=== PATIENT | female | born 1985 | race Caucasian/White ===

== ENCOUNTER 2021-07-13 10:21 | Emergency (ER) | payer SELFPAY ==
[2021-07-13 10:58] LABS: #Eosinphils 0.2 10x3/uL (0.0-0.5); #Monocytes 0.5 10x3/uL (0.0-1.1); #Neutrophils 6.1 10x3/uL (1.5-8.4); %Basophils 0.4 % (0.0-2.0); %Eosinophils 2.1 % (0.0-6.0); %Lymphocytes 20.8 % (18.0-47.0); %Monocytes 5.5 % (0.0-10.0); %Neutrophils 70.8 % (40.0-75.0); Hemoglobin 11.7 g/dL (12.0-15.5); Mean Corpuscular HGB CONC 31.5 g/dL (32.0-36.0); Mean Corpuscular Hemoglobin 24.6 pg (27.0-33.0); Mean Corpuscular Volume 77.9 fl (81.6-98.3); Mean Platelet Volume 8.8 fl (7.4-10.4); Platelet Count 374 10x3/uL (150-450); RBC Distribution Width 14.7 % (11.5-14.5); Red Blood Cell (RBC) Count 4.76 10x6/uL (3.90-5.03); White Blood Cell (WBC) Count 8.5 10x3/uL (3.5-10.5)
[2021-07-13 11:01] LABS: ALT (SGPT) 11 U/L (8-55); AST (SGOT) 15 U/L (5-34); Albumin 4.7 g/dL (3.5-5.0); Alkaline Phosphatase 55 U/L (40-110); Anion Gap 14 mmol/L (10-20); BUN (Urea Nitrogen) 18 mg/dL (7.0-18.7); Calc. Creatinine Clearance 0 mL/min (70-130); Calcium 9.8 mg/dL (7.8-10.44); Carbon Dioxide 25 mmol/L (22-29); Chloride 101 mmol/L (98-107); Globulin 2.9 g/dL (2.4-3.5); Glucose 116 mg/dL (70-105); Potassium 3.6 mmol/L (3.5-5.1); Protein, Total 7.6 g/dL (6.0-8.3); Sodium 136 mmol/L (136-145)
[2021-07-13 11:07] LABS: Bilirubin Neg (Negative); Blood, Urine 10 (Negative); Clarity Clear (Clear); Glucose, Urine (Dipstick) Normal (Negative); Ketone, Urine Negative (Negative); Leukocyte 500 (Negative); Nitrite Negative (Negative); Protein, Urine (Dipstick) 15 mg/dl (Neg-Trace); Urobilinogen Normal mg/dL (Less than 2)
[2021-07-13 11:19] LABS: Squamous Epithelial 0-3 HPF (0-3)
[2021-07-13 11:20] LABS: Bacteria/HPF Rare-Few HPF (None Seen)
[2021-07-14 12:15] LABS: Chlam.trachomatis by PCR,Urine Not Detected (NotDetected)
== END 2021-07-13 13:36 | disposition home or self-care (01) ==
LOC: CSHERS 10:21
DX: O20.0 Threatened abortion (principal); Z3A.01 Less than 8 weeks gestation of pregnancy
CPT/HCPCS: 36415; 80053; 81003; 81015; 84702; 85025; 86900; 86901; 87480; 87491; 87510; 87591; 87660

== ENCOUNTER 2021-11-07 00:54 | Day surgery (SDC) | payer MEDICAID, OTHER ==
[2021-11-07 01:36] VITALS: BMI 22.9
[2021-11-07 01:53] LABS: Bilirubin Neg (Negative); Blood, Urine Negative (Negative); Clarity Slightly Cloudy (Clear); Glucose, Urine (Dipstick) Normal (Negative); Ketone, Urine Negative (Negative); Leukocyte 500 (Negative); Nitrite Negative (Negative); Protein, Urine (Dipstick) Negative (Neg-Trace); Urobilinogen Normal mg/dL (Less than 2)
[2021-11-07] MEDS ORDERED: Cyclobenzaprine 10 MG TAB PO SCH (02:00)
[2021-11-07] MEDS ORDERED: Acetaminophen 325 MG TAB PO SCH (02:00)
[2021-11-07 02:02] LABS: Bacteria/HPF None Seen HPF (None Seen); RBC/HPF 0-3 HPF (0-3); Squamous Epithelial 0-3 HPF (0-3); Trichomonas/HPF Rare HPF (None Seen)
[2021-11-07 02:04] LABS: Urine Culture Reflex Yes Yes
[2021-11-07] MEDS ORDERED: metroNIDAZOLE 500 MG TAB PO SCH (02:15)
== END 2021-11-07 02:33 | disposition home or self-care (01) ==
LOC: CSHLD/OP 00:54
PROVIDERS: ATTEND Advanced Practice Midwife
DX: O26.892 Other specified pregnancy related conditions, second trimester (principal); R10.30 Lower abdominal pain, unspecified; Z88.0 Allergy status to penicillin; Z3A.24 24 weeks gestation of pregnancy
CPT/HCPCS: 81001; 87086; 99283

== ENCOUNTER 2022-02-19 05:30 | Inpatient (IN) | payer OTHER ==
[2022-02-19] MEDS ORDERED: Diphenoxylate HCl/Atropine Tablet PO PRN ×2 (16:54)
[2022-02-19] MEDS ORDERED: Carboprost 250 MCG/ML AMP IM PRN (16:54)
[2022-02-19] MEDS ORDERED: Methylergonovine 0.2 MG/ML VIAL IM PRN (16:54)
[2022-02-19] MEDS ORDERED: Ondansetron PF 4 MG/2 ML Vial IVP PRN (16:54)
[2022-02-19] MEDS ORDERED: Misoprostol 200 MCG TAB PR PRN (16:54)
[2022-02-19] MEDS ORDERED: Lidocaine 1% (PF) 30 ML VIAL SC PRN (16:54)
[2022-02-19] MEDS ORDERED: Ibuprofen 800 MG TAB PO PRN (16:54)
[2022-02-19] MEDS ORDERED: HYDROcodone/Acetaminophen 5/325 mg Tablet PO PRN ×2 (16:54)
[2022-02-19] MEDS ORDERED: hydrALAZINE 20 MG/ML VIAL SLOW IVP PRN (16:54)
[2022-02-19] MEDS ORDERED: Butorphanol Tartrate 1 MG/ML VIAL SLOW IVP PRN (16:54)
[2022-02-19] MEDS ORDERED: Promethazine HCl 25 MG/ML VIAL IM PRN (16:54)
[2022-02-19] MEDS ORDERED: NS w/ Oxytocin 30 units 500 ML IV SCH (21:00)
[2022-02-19 22:05] LABS: Hemoglobin 11.9 g/dL (12.0-15.5); Mean Corpuscular Hemoglobin 28.1 pg (27.0-33.0); Mean Corpuscular Volume 82.7 fl (81.6-98.3); Mean Platelet Volume 9.5 fl (7.4-10.4); Platelet Count 231 10x3/uL (150-450); RBC Distribution Width 15.4 % (11.5-14.5); Red Blood Cell (RBC) Count 4.23 10x6/uL (3.90-5.03); White Blood Cell (WBC) Count 9.2 10x3/uL (3.5-10.5)
[2022-02-19 23:11] LABS: Syphilis Antibody Nonreactive (Nonreactive); Syphilis Antibody Index 0.02 S/CO (<1.00 Non-Reactive)
[2022-02-19 23:13] LABS: HBSAg Index 0.18 S/CO (0-0.99); Hep B Surf Ag Non-Reactive S/CO (NonReactive)
[2022-02-20 06:16] VITALS: BMI 28.1
[2022-02-20] MEDS ORDERED: Fentanyl 2 mcg/Bup 0.1% Cadd 0 ML ONE (06:25)
[2022-02-20] MEDS: Lactated Ringer's 1,000 ML IV SCH ×2 (10:46→14:50)
[2022-02-20] MEDS ORDERED: Boostrix 0.5 ML (Tdap) VIAL (>/=7 yrs of age) IM ONE (14:30)
[2022-02-20] MEDS ORDERED: Bisacodyl 10 MG SUPP PR PRN (14:30)
[2022-02-20] MEDS ORDERED: Preparation H Ointment 28 GM TUBE PR PRN (14:30)
[2022-02-20] MEDS ORDERED: Milk Of Magnesia 30 ML UDCUP PO PRN (14:30)
[2022-02-20] MEDS ORDERED: Lanolin Ointment 7 GM TUBE TOP PRN (14:30)
[2022-02-20] MEDS: Ferrous Sulfate 325 MG TAB PO SCH (15:03)
[2022-02-20] MEDS: Ibuprofen 800 MG TAB PO SCH ×2 (15:17→21:34)
[2022-02-20] MEDS: Docusate 100 MG CAP PO SCH (21:33)
[2022-02-21 04:15] VITALS: TEMP 98.1
[2022-02-21] MEDS: Ibuprofen 800 MG TAB PO SCH (05:42)
[2022-02-21] MEDS: Ferrous Sulfate 325 MG TAB PO SCH (09:13)
[2022-02-21] MEDS: Prenatal Vitamin 1 TAB PO SCH ×2 (09:24→09:25)
[2022-02-21] MEDS: Docusate 100 MG CAP PO SCH (09:24)
[2022-02-21] MEDS ORDERED: Benzocaine-Menthol 82.5 ML CAN TOP PRN (09:33)
[2022-02-21 10:31] VITALS: BP 127/63
== END 2022-02-21 09:58 | disposition home or self-care (01) | DRG 807 ==
LOC: CSHLD 20:14 → CSHPED 02-20 10:00
PROVIDERS: ADMIT Obstetrics & Gynecology; ATTEND Advanced Practice Midwife
PROC: 10E0XZZ Delivery of Products of Conception, External Approach (ICD-10-PCS; principal; 2022-02-20)
PROC: 0KQM0ZZ Repair Perineum Muscle, Open Approach (ICD-10-PCS; 2022-02-20)
DX: O99.02 Anemia complicating childbirth (principal); Z37.0 Single live birth; O66.0 Obstructed labor due to shoulder dystocia; Z3A.39 39 weeks gestation of pregnancy; D64.9 Anemia, unspecified; Z88.1 Allergy status to other antibiotic agents; O70.1 Second degree perineal laceration during delivery
CPT/HCPCS: 36415; 85027; 86780; 86850; 86900; 86901; 87340

== ENCOUNTER 2025-03-11 20:06 | Day surgery (SDC) | payer OTHER ==
[2025-03-11 20:32] VITALS: BMI 28.3
[2025-03-11] MEDS ORDERED: hydrALAZINE 20 MG/ML VIAL SLOW IVP PRN (20:57)
[2025-03-11 21:18] LABS: Glucose, Urine (Dipstick) Normal (Negative); Leukocyte Negative (Negative); Protein, Urine (Dipstick) Negative (Neg-Trace); Specific Gravity, Urine 1.010 (1.005-1.030)
[2025-03-11 21:38] LABS: Bacteria/HPF None Seen HPF (None Seen); CAUTI Indications for Culture Pregnancy; RBC/HPF None Seen HPF (0-3); WBC/HPF None Seen HPF (0-3)
[2025-03-11 21:39] LABS: Urine Culture Reflex Yes Yes
== END 2025-03-11 22:31 | disposition home or self-care (01) ==
LOC: CSHLD/OP 20:06
PROVIDERS: ATTEND Family Medicine
DX: O47.03 False labor before 37 completed weeks of gestation, third trimester (principal); O09.523 Supervision of elderly multigravida, third trimester; Z88.0 Allergy status to penicillin; Z3A.36 36 weeks gestation of pregnancy
CPT/HCPCS: 81001; 87086; 99284